=== PATIENT | male | born 1975 | race Caucasian/White ===

== ENCOUNTER 2018-07-15 01:13 | Emergency (ER) | payer SELFPAY ==
[~2018-07-15] VITALS: Ht 177.8 cm; Wt 81.3 kg
[2018-07-15 01:23] VITALS: BP 130/87
== END 2018-07-15 03:35 | disposition home or self-care (01) ==
LOC: ED 03:30
DX: S29.011A Strain of muscle and tendon of front wall of thorax, initial encounter (principal); W17.89XA Other fall from one level to another, initial encounter; Y93.89 Activity, other specified; Y99.8 Other external cause status; Y92.009 Unspecified place in unspecified non-institutional (private) residence as the place of occurrence of the external cause
CPT/HCPCS: 93005; 99284